=== PATIENT | female | born 1995 | race Caucasian/White ===

== ENCOUNTER 2017-08-26 01:43 | Emergency (ER) | payer OTHER ==
[2017-08-26] MEDS ORDERED: CYCLOBENZAPRINE 10MG TABLET PO ONE (01:58)
[2017-08-26] MEDS ORDERED: HYDROCODONE/APAP 5/325MG TABLET PO ONE (01:58)
--- NOTE | 2017-08-26 01:58 | Emergency Department Record ---
History of Present Illness - General Chief complaint: Pain Stated complaint: RT SHOULDER PAIN Time Seen by Provider: 08/26/17 01:47 Source: Patient Mode of Arrival: Ambulatory Limitations: No limitations - History of Present Illness Initial comments: 21 yo female present with about 5 days of scapular pain. She states the pain has come on gradually. It hurts with movement or palpation. She does not remember any specific injury. No redness or rash. No swelling. It hurts to lift the arm. No radiation down the arm. No numbness or tingling. No swelling of the arm. No history of orthopedic issues or surgeries. MD Complaint: Extremity pain -: Days(s) (5) Location: Right History of Same: No -: Yes Myalgia Radiation: Proximal Quality: Aching Consistency: Constant Improves with: Immobilization Worsens with: Palpation, Weight bearing Associated Symptoms: Denies other symptoms, Myalgias - Related Data Previous Rx's Medication Instructions Recorded Cyclobenzaprine HCl [Flexeril] 10 mg PO TID #15 tablet 08/26/17 Naproxen [Naprosyn] 500 mg PO Q12H #20 tab. 08/26/17 Allergies Allergy/AdvReac Type Severity Reaction Status Date / Time cefaclor [From Ceclor] Allergy RASH Verified 08/26/17 01:52 erythromycin base Allergy RASH Verified 08/26/17 01:52 Review of Systems Constitutional: Denies: Chills, Fever, Malaise, Weakness Eyes: Denies: Eye discharge, Eye pain, Photophobia, Vision change ENT: Denies: Congestion Respiratory: Reports: Cough (last week that has resolved). Denies: Dyspnea Cardiovascular: Denies: Chest pain, Palpitations, Syncope Endocrine: Denies: Fatigue, Polydipsia, Polyuria Gastrointestinal: Denies: Abdominal pain, Diarrhea, Nausea, Vomiting Genitourinary: Denies: Dysuria, Urgency Musculoskeletal: Reports: Myalgia. Denies: Arthralgia, Back pain, Joint swelling Skin: Denies: Bruising, Change in color, Rash Neurological: Denies: Headache, Numbness, Weakness Psychiatric: Denies: Anxiety Hematological/Lymphatic: Denies: Blood Clots, Easy bleeding, Easy bruising, Swollen glands Physical Exam - General General Appearance: Alert, Oriented x3, Cooperative, No acute distress Limitations: No limitations - Head Head exam: Atraumatic, Normal inspection - Eye Eye exam: Normal appearance. negative: Conjunctival injection, Scleral icterus - ENT ENT exam: Normal exam Ear exam: Normal external inspection Nasal Exam: Normal inspection Mouth exam: Normal external inspection - Neck Neck exam: Normal inspection, Full ROM. negative: Tenderness - Respiratory Respiratory exam: Normal lung sounds bilaterally. negative: Respiratory distress - Cardiovascular Cardiovascular Exam: Regular rate, Normal rhythm, Normal heart sounds Peripheral Pulses: 2+: Radial (R) - Rectal Rectal exam: Deferred - exam: Deferred - Extremities Extremities exam: Normal inspection, Tenderness. negative: Full ROM, Joint swelling Image of Full Body: 1 - tender over the right scapular area, no rash, no swelling, pain with raising the arm, no joint tenderness, no tenderness over the rotator cuff, pain with arm abduction over the scapula - Back Back exam: Denies: CVA tenderness (R), CVA tenderness (L) - Neurological Neurological exam: Alert, Normal gait, Oriented X3. negative: Abnormal gait, Motor sensory deficit - Psychiatric Psychiatric exam: Normal affect, Normal mood. negative: Agitated, Anxious - Skin Skin exam: Dry, Intact, Normal color, Warm Course - Reevaluation(s) Reevaluation #1: The examination is consistent with muscular in origin. No rash. No joint pain. No indication that XR is helpful at this time I discussed symptomatic treatment We discussed close follow up with her PCP if this is not resolving. 08/26/17 01:56 Disposition Disposition: Discharge Clinical Impression: Pain of right scapula Disposition: Home, Self-Care Condition: (1) Good Instructions: Musculoskeletal Pain (ED) Additional Instructions: See your doctor this week if the pain is not resolving. Return if worse, rash, swelling, weakness, radiation down the arm Prescriptions: Cyclobenzaprine HCl [Flexeril] 10 mg PO TID #15 tablet Naproxen [Naprosyn] 500 mg PO Q12H #20 tab Time of Disposition: 01:58 Quality - Quality Measures Quality Measures: N/A - Blood Pressure Screening Does Patient Have Any of the Following: No Systolic Measurement: ~ Screening for High Blood Pressure: < Pre-Hypertensive BP, F/U Documented > [ [id number]] Pre-Hypertensive Follow-up Interventions: Referral to alternative/primary care provider.
== END 2017-08-26 02:10 | disposition home or self-care (01) ==
LOC: ER 01:43
DX: M25.519 Pain in unspecified shoulder (principal)
CPT/HCPCS: 99282